=== PATIENT | female | born 1990 ===

== ENCOUNTER 2018-12-24 23:11 | Emergency (ER) | payer SELFPAY ==
[~2018-12-24] VITALS: Ht 154.9 cm; Wt 80.4 kg
--- NOTE | 2018-12-24 23:50 | NUR ---
PT AMBULATES FROM LOBBY TO ROOM WITH STEADY GAIT.
--- NOTE | 2018-12-25 00:18 | NUR ---
PT TO US AT THIS TIME.
--- NOTE | 2018-12-25 00:43 | NUR ---
PT PROVIDED UA CUP TO VOID.
[2018-12-25 00:52] LABS: BASOPHILS # (AUTO) 0.02 x10^3/uL (0-0.1); BASOPHILS % (AUTO) 0 % (0-1); EOSINOPHILS # (AUTO) 0.21 x10^3/uL (0-0.4); EOSINOPHILS % (AUTO) 2 % (1-7); LYMPHOCYTES # (AUTO) 2.48 x10^3/uL (1-3.4); LYMPHOCYTES % (AUTO) 28 % (22-44); MD NO; MEAN CORPUSCULAR HEMOGLOBIN 31.2 pg (27.0-34.8); MEAN CORPUSCULAR VOLUME 89.1 fL (80-100); MEAN PLATELET VOLUME 8.7 fL (7.4-10.4); MONOCYTES # (AUTO) 0.61 x10^3/uL (0.2-0.8); MONOCYTES % (AUTO) 7 % (2-9); NEUTROPHILS # (AUTO) 5.48 x10^3/uL (1.8-6.8); NEUTROPHILS % (AUTO) 62 % (42-75); PLATELET COUNT 216 x10^3/uL (130-400); RED BLOOD COUNT 3.85 x10^6/uL (3.82-5.3); RED CELL DISTRIBUTION WIDTH 13.5 % (9.6-15.2)
[2018-12-25 00:59] LABS: ALANINE AMINOTRANSFERASE 28 U/L (12-78); ALBUMIN 3.6 g/dL (3.4-5.0); ANION GAP 7 mmol/L (5-15); CALCIUM 8.5 mg/dL (8.5-10.1); CHLORIDE 111 mmol/L (98-107); CREATININE 0.64 mg/dL (0.55-1.02)
[2018-12-25 01:16] LABS: ALKALINE PHOSPHATASE 47 U/L (45-117); BILIRUBIN,TOTAL 0.2 mg/dL (0.2-1.0); TOTAL PROTEIN 7.2 g/dL (6.4-8.2)
[2018-12-25] MEDS ORDERED: ACETAMINOPHEN 325 MG TABLET ONE (01:24)
--- NOTE | 2018-12-25 01:27 | NUR ---
PT MEDICATED FOR PAIN PER MAR.
[2018-12-25] MEDS ORDERED: ACETAMINOPHEN 325 MG TABLET PO ONE (01:30)
[2018-12-25 01:41] LABS: MICROSCOPIC AUTO
[2018-12-25 01:43] LABS: CULTURE INDICATED? NO
--- NOTE | 2018-12-25 02:24 | NUR ---
PT D/C WITH D/C SUMMARY AND SCRIPTS. ALL QUESTIONS ANSWERED. PT AMBULATED TO REGISTRATION DESK WITH STEADY GAIT FOR D/C HOME. PT D/C IN CARE OF FRIEND. PT DENIES ANY OTHER NEEDS PERTAINING TO THIS VISIT.
[2018-12-25 02:25] VITALS: BP 148/91
== END 2018-12-25 02:28 | disposition home or self-care (01) ==
LOC: ED 12-25 01:04
DX: O36.4XX0 Maternal care for intrauterine death, not applicable or unspecified (principal); Z3A.08 8 weeks gestation of pregnancy
CPT/HCPCS: 36415; 76801; 80053; 81001; 84702; 85025; 86901; 93005; 99284